=== PATIENT | female | born 1990 | race Caucasian/White ===

== ENCOUNTER 2023-07-29 00:42 | Emergency (ER) | payer OTHER ==
[~2023-07-29] VITALS: Ht 152.4 cm; Wt 72.6 kg
[~2023-07-29 00:42] MED LIST: ANAPROX DS550 MG PO; AUGMENTIN 875 M1 TAB PO; AUGMENTIN 875875 MG PO; BACTRIM DS 8001 TA1 PO; CIPROFLOXACIN500 MG PO; CLARITIN10 MG PO; COMPOUND W TP; DARVOCET N 1001 TAB PO; KEFLEX500 MG PO; LEVAQUIN750 MG PO; LIDEX 0.05% CRE15 GM T; MACROBID100 M1 PO; MOTRIN600 MG PO; MOTRIN800 MG PO; Motrin,Rufen800 MG PO; NASONEX0.05 MG/AC NAS; NKHM; NKHM PO; PROAIR HFA0.09 MG/AC INH; PYRIDIUM200 M1 PO; PYRIDIUM200 MG PO; TESSALON PERLE200 MG PO; TRAMADOL HCL50 MG PO; ULTRAM50 MG PO; ZOVIRAX TP
[2023-07-29] MEDS ORDERED: Acetaminophen/Hydrocodone 5 MG/325 MG TABLET PO ONE (00:50)
[2023-07-29] MEDS ORDERED: Ondansetron Hydrochloride 4 MG TAB SL ONE (00:50)
[2023-07-29] MEDS ORDERED: PENICILLIN V POTASSIUM 500 MG TAB PO ONE (00:50)
[2023-07-29] MEDS ORDERED: PENICILLIN VK500 MG PO (00:53)
== END 2023-07-29 01:03 | disposition home or self-care (01) ==
LOC: ED 00:42
DX: K02.9 Dental caries, unspecified (principal); K08.89 Other specified disorders of teeth and supporting structures

== ENCOUNTER 2023-12-06 22:55 | Emergency (ER) | payer OTHER ==
[~2023-12-06] VITALS: Ht 152.4 cm; Wt 72.6 kg
[~2023-12-06 22:55] MED LIST changes: +PENICILLIN VK500 MG PO
[2023-12-07] MEDS ORDERED: Ketorolac Tromethamine 60 MG/2 ML VIAL IM ONE (00:35)
[2023-12-07] MEDS ORDERED: METHOCARBAMOL 500 MG TAB PO ONE (00:35)
[2023-12-07] MEDS ORDERED: NAPROXEN250 MG PO (00:42)
[2023-12-07] MEDS ORDERED: METHOCARBAMOL500 M1 PO (00:42)
[2023-12-07] MEDS ORDERED: NAPROXEN 250 MG TAB PO ONE (00:45)
== END 2023-12-07 00:54 | disposition home or self-care (01) ==
LOC: ED 22:55
DX: M54.9 Dorsalgia, unspecified (principal); M54.2 Cervicalgia; F17.200 Nicotine dependence, unspecified, uncomplicated; V69.59XA Passenger in heavy transport vehicle injured in collision with other motor vehicles in traffic accident, initial encounter; Y93.89 Activity, other specified; Y92.410 Unspecified street and highway as the place of occurrence of the external cause; Y99.8 Other external cause status

== ENCOUNTER 2024-03-04 02:30 | Emergency (ER) | payer SELFPAY ==
[~2024-03-04] VITALS: Ht 152.4 cm; Wt 74.8 kg
[~2024-03-04 02:30] MED LIST changes: +METHOCARBAMOL500 M1 PO; +NAPROXEN250 MG PO
[2024-03-04] MEDS ORDERED: AMOX-CLAV 875-1 EACH PO (03:09)
[2024-03-04] MEDS ORDERED: MELOXICAM15 MG PO (03:09)
[2024-03-04] MEDS ORDERED: Amoxicillin/Clavulanate Pota 875 MG TAB PO ONE (03:10)
[2024-03-04] MEDS ORDERED: ACETAMINOPHEN 325 MG TAB PO ONE (03:10)
== END 2024-03-04 03:12 | disposition home or self-care (01) ==
LOC: ED 02:30
DX: K04.7 Periapical abscess without sinus (principal); R22.0 Localized swelling, mass and lump, head; F17.200 Nicotine dependence, unspecified, uncomplicated

== ENCOUNTER 2024-05-11 18:22 | Emergency (ER) | payer OTHER ==
[~2024-05-11] VITALS: Ht 152.4 cm; Wt 74.8 kg
[~2024-05-11 18:22] MED LIST changes: +AMOX-CLAV 875-1 EACH PO; +MELOXICAM15 MG PO
[2024-05-11] MEDS ORDERED: DEXAMETHASONE6 MG PO (18:50)
[2024-05-11] MEDS ORDERED: ACETAMINOPHEN 325 MG TAB PO ONE (18:55)
[2024-05-11] MEDS ORDERED: DEXAMETHASONE 4 MG TAB PO ONE (18:55)
== END 2024-05-11 19:07 | disposition home or self-care (01) ==
LOC: ED 18:22
DX: U07.1 COVID-19 (principal)

== ENCOUNTER 2024-07-07 17:27 | Emergency (ER) | payer OTHER ==
[~2024-07-07] VITALS: Ht 152.4 cm; Wt 75.7 kg
[~2024-07-07 17:27] MED LIST changes: +DEXAMETHASONE6 MG PO
[2024-07-07] MEDS ORDERED: Amoxicillin/Clavulanate Pota 875 MG TAB PO ONE (18:35)
[2024-07-07] MEDS ORDERED: Acetaminophen/Oxycodone 5 MG/325 MG TABLET PO ONE (18:35)
[2024-07-07] MEDS ORDERED: AMOX-CLAV 875-1 EACH PO (18:38)
[2024-07-07] MEDS ORDERED: MELOXICAM15 MG PO (18:38)
== END 2024-07-07 19:02 | disposition home or self-care (01) ==
LOC: ED 17:27
DX: K02.9 Dental caries, unspecified (principal); K04.7 Periapical abscess without sinus; F17.210 Nicotine dependence, cigarettes, uncomplicated; Z79.899 Other long term (current) drug therapy